=== PATIENT | female | born 1940 | race Caucasian/White ===

== ENCOUNTER 2018-05-24 10:08 | Emergency (ER) | payer MEDICARE ==
[~2018-05-24] VITALS: Ht 157.5 cm; Wt 70.8 kg
[~2018-05-24 10:08] MED LIST: ALLOPURINOL300 MG PO; AMLODIPINE BESYL5 MG PO; ATENOLOL50 MG PO; ATORVASTATIN CA80 MG PO; AZELASTINE137 MCG/0.; CORDARONE200 MG PO; DIFLUCAN200 MG PO; FUROSEMIDE20 MG PO; LOPRESSOR25 MG PO; LOSARTAN POTAS100 MG PO; MINOCIN50 MG PO; OMEPRAZOLE40 MG PO; PEPCID20 MG PO; PROVENTIL HFA6.7 GM INH; TESSALON PERLE100 MG PO; ULTRAM 50MG50 MG PO; VITAMIN D-32000 UNIT PO; XARELTO10 MG PO; ZETIA10 MG PO
--- OUTSIDE RECORDS SUMMARY | 2018-05-24 10:11 | XMS REPORT | Clinical Summary ---
Author Author EVIN [facility] Address Unknown Phone Unavailable Care Team Providers Care Service Desk Director Name Role Phone Sanjeev Up PCP Unavailable Allergies No Known Allergies Medications End Date Status Medication Sig Dispensed Refills Start Date Active ezetimibe (ZETIA) 10 mg Take 10 mg by 0 tablet mouth daily. Active azelastine (ASTELIN) 137 1 spray by 0 mcg nasal spray Nasal route 2 (two) times daily Use in each nostril as directed . Active allopurinol (ZYLOPRIM) Take 300 mg 0 300 MG tablet by mouth daily. Active famotidine (PEPCID) 20 MG Take 20 mg by 0 tablet mouth 2 (two) times daily. Active digoxin (LANOXIN) 0.125 Take 125 mcg 0 MG tablet by mouth daily. Active cholecalciferol, vitamin Take 5,000 0 D3, 5,000 unit Tab Units by mouth daily. Active furosemide (LASIX) 40 MG Take 40 mg by 0 tablet mouth 2 (two) times daily. Active potassium chloride SA Take 20 mEq 0 (K-DUR,KLOR-CON) 20 MEQ by mouth tablet daily. Active metOLazone (ZAROXOLYN) Take 2.5 mg 0 2.5 MG tablet by mouth as needed. Active lenalidomide (REVLIMID) 5 Take by 0 mg capsule mouth. 12/03/2017 atenolol (TENORMIN) 25 MG Take 1 tablet 60 tablet 1 tablet (25 mg total) 7 by mouth daily. 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 -- ECHO 08/201410/10/2014 Hiatal hernia -- large 10/10/2014 Family History Medical History Relation Name Comments Diabetes Brother Hypertension Brother Cancer Father Heart disease Father Hypertension Father Cancer Mother Hypertension Mother Hypertension Sister Relation Name Status Comments Brother Father Mother Sister Social History Date Tobacco Use Types Packs/Day Years Used Never Smoker Smokeless Tobacco: Never Used Alcohol Use Drinks/Week oz/Week Comments No Sex Assigned at Date Recorded Not on file Industry Job Start Date Occupation Not on file Not on file Not on file Travel End Travel History Travel Start No recent travel history available. Last Filed Vital Signs Not on file Plan of Treatment Not on file Results Not on fileafter 05/23/2017 Insurance Payer Benefit Subscriber ID Type Phone Address Plan / Group [facility] ADV Advance Directives For more information, please contact: [facility] [address] [place] [address] Date Inactivated Comments Code Status Date Activated 04/05/2016 4:30 PM Full Code 04/05/2016 5:57 AM This code status was determined by: Patient 02/05/2016 3:44 PM Full Code 02/02/2016 10:05 PM This code status was determined by: Patient 12/22/2014 6:41 PM Full Code 12/16/2014 3:43 AM This code status was determined by: Patient 11/09/2014 4:17 PM Full Code 11/06/2014 1:09 PM This code status was determined by: Patient 10/12/2014 11:43 AM Full Code 10/12/2014 7:55 AM This code status was determined by: Patient
--- OUTSIDE RECORDS SUMMARY | 2018-05-24 10:11 | XMS REPORT | Clinical Summary ---
Author Author [facility] Address Unknown Phone Unavailable Care Team Providers Care Microsoft Bi Consultant Name Role Phone Sanjeev Up MD PCP Allergies No Known Allergies Medications End Date Status Medication Sig Dispensed Refills Start Date Active allopurinol (ZYLOPRIM) 0 300 MG tablet 6 Active atenolol (TENORMIN) 50 MG 0 tablet 6 Active PEPCID 20 mg tablet 0 6 Active furosemide (LASIX) 20 MG 0 tablet 6 Active metolazone (ZAROXOLYN) 5 0 MG tablet 6 Active COUMADIN 5 mg tablet 0 6 Active ZETIA 10 mg tablet 0 6 Active benzonatate (TESSALON) Take 200 mg 0 200 MG capsule by mouth 3 (three) times a day as needed for cough. Active cholecalciferol, vitamin Take by 0 D3, 5,000 unit tablet mouth. Active docusate sodium (COLACE) Take 100 mg 0 100 MG capsule by mouth 2 (two) times a day. Active fexofenadine (TAYLOR) Take 180 mg 0 180 MG tablet by mouth daily. Active amLODIPine (NORVASC) 5 MG Take 5 mg by 0 tablet mouth daily. Active Problems Problem Noted Date Morbid obesity due to excess calories 05/31/2016 Overview: Patient has BMI of 42 Her PH is likely a mix of goup 2 and 3 Recommend continue using CPAP L ast Assessment & Plan: Obesity is unchanged. Discussed the patient's BMI. The BMI is above average; BMI management plan is completed. General weight loss/lifestyle modification strategies discussed (elicit support from others; identify saboteurs; non-food rewards, etc). Informal exercise measures discussed, e.g. taking stairs instead of elevator. Regular aerobic exercise program discussed. Obstructive sleep apnea (adult) (pediatric) 02/14/2016 Overview: 02/04/2016 Unattended sleep study - AHI 7.4 O2 andreia 81%. Prescribed APAP. Current CPAP settings at 12 cm H20 L ast Assessment & Plan: Recommend to continue using CPAP and [place] [facility] [place]monary hypertension 02/14/2016 Overview: Patient now for follow up. Echo February 2016 She has elevated PA pressure to 55-60. RV dilated but no comment on RV function. I reviewed CT images Her PA is dilated. LA appears generous but not significantly dilated. RV appears to be dilated as well. On exam she has loud P2, elevated JVD to 5 cm, Patient had a PFT during the admission and findings are as below: FEV1 1.9 83% FVC1.48 84 %pred TLC 3.48 78% pred DLCo 11.23 56% pred Recently underwent R+LHC Patient was sent to us for evaluation of PH. She recently [place] [facility] [place] 04/05/2016 Cath was indicative of elevated left sided pressures. 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 Does not meet indication to be considered for PAH specific therapy Patient says she feels better since the time of starting CPAP Recommended her to continue the same She needs to lose weight to improve her Left sided pressure Her BMI is 42 Follow up with strip deburrer to lose weight Recommend her to continue following up with Dr Mary SANTANA in six months or PRN CLL (chronic lymphocytic leukemia) 02/14/2016 Overview: Patient just finished her six monthly cycle 4 of chemotherapy Doing well. Following up with Dr Pedrito uriarte Assessment & Plan: Recommend to continue following up with Dr Major Scheduled for surveillance CT chest in June Family History Relation Name Status Comments Father Mother Social History Date Tobacco Use Types Packs/Day Years Used Never Smoker Smokeless Tobacco: Never Used Tobacco Cessation: Counseling Given: No Alcohol Use Drinks/Week oz/Week Comments No Sex Assigned at Date Recorded Not on file Industry Job Start Date Occupation Not on file Not on file Not on file Travel End Travel History Travel Start No recent travel history available. Last Filed Vital Signs Not on file Plan of Treatment Health Maintenance Due Date Last Done Comments SHINGRIX VACCINE (1 of 2) 1988 ZOSTER VACCINE 1998 PNEUMOCOCCAL-13 2003 INFLUENZA VACCINE 01/16/2018 03/05/2013, 02/20/2012 PNEUMOCOCCAL Completed 10/26/2008 POLYSACCHARIDE VACCINE AGE 65 AND OVER Results Not on fileafter 05/23/2017 Insurance Payer Benefit Subscriber ID Type Phone Address Plan / Group [facility] H[facility] ADVANTAGE [facility] Advance Directives Patient has advance care planning documents on file. For more information, amy stroud contact: Gagan Taylor [address] [place] [address]
--- OUTSIDE RECORDS SUMMARY | 2018-05-24 10:12 | XMS REPORT ---
Author Author [facility] Address Unknown Phone Unavailable Care Team Providers [employer] Name Role Phone DEUCE HERNANDEZ Unavailable Unavailable KARLA RICE Unavailable Unavailable LELAND BARKLEY Unavailable Unavailable TONY FERNÁNDEZ Unavailable Unavailable Problems This patient has no known problems. Allergies, Adverse Reactions, Alerts This patient has no known allergies or adverse reactions. Medications This patient has no known medications. Results Test Description Test Time Test Comments Text Results Atomic Results Result Comments TISSUE EXAM 2017-02-28 11:06:00 Surgical Pathology Report Case: [id number] Authorizing Provider: Ignacio Hernandez, Collected: 02/26/2017 1015 MD Ordering Location: [facility] PERIOPERATIVE Received: 02/26/2017 1120 SERVICES Pathologist: Janes Swartz MD Specimen: Gallbladder PART A GALLBLADDER, CHOLECYSTECTOMY:CHRONIC CHOLECYSTITIS.CHOLELITHIASIS. Signing Pathologist Direct Phone Line: [phone] signed by Janes Swartz MD on 02/28/2017 at 11:06 [id number] Gallbladder Received in formalin labeled "gallbladder" is a 7.5 x 4.2 x 3.5 cm, intact, distended gallbladder. The serosal surface is purple-dewitt and exhibits cautery artifact on the hepatic surface. The lumen contains yellow-green to red mucoid bile and multiple irregular, black calculi ranging in size from 0.2 cm to 0.3 cm in greatest dimension. The mucosal surface is yellow-green to red, velvety and glistening. The wall measures up to 0.3 cm in maximum thickness.Section code: A1, parallel cystic duct resection margin; A2, plastic products sales representative sections of gallbladder. DB/ew PROTHROMBIN TIME/INR 2017-02-26 08:11:00 PROTIME (BEAKER) (test tuyh=004) 16.4 seconds 11.7-14.7 INR (BEAKER) (test jbup=649) 1.3 <=5.9 RECOMMENDED COUMADIN/WARFARIN INR THERAPY RANGESSTANDARD DOSE: 2.0 - 3.0 Inclu todd: PROPHYLAXIS for venous thrombosis, systemic embolization; TREATMENT for julienne ous thrombosis and/or pulmonary embolus.HIGH RISK: Target INR is 2.5-3.5 for pat ients with mechanical heart valves.CBC W/PLT COUNT & AUTO [id number] 08:40:00* Test Item Value Reference Range Comments WHITE BLOOD CELL COUNT (BEAKER) (test xzbl=214) 10.7 K/ L 3.5-10.5 RED BLOOD CELL COUNT (BEAKER) (test dhxo=989) 3.37 M/ L 3.93-5.22 HEMOGLOBIN (BEAKER) (test oqzy=097) 11.1 GM/DL 11.2-15.7 HEMATOCRIT (BEAKER) (test eykw=343) 35.0 % 34.1-44.9 MEAN CORPUSCULAR VOLUME (BEAKER) (test hteo=746) 103.9 fL 79.4-94.8 MEAN CORPUSCULAR HEMOGLOBIN (BEAKER) (test blyx=955) 32.9 pg 25.6-32.2 MEAN CORPUSCULAR HEMOGLOBIN CONC (BEAKER) (test rwrh=147) 31.7 GM/DL 32.2-35.5 RED CELL DISTRIBUTION WIDTH (BEAKER) (test juzi=410) 15.9 % 11.7-14.4 PLATELET COUNT (BEAKER) (test gwpv=978) 173 K/CU MM 150-450 MEAN PLATELET VOLUME (BEAKER) (test ecmd=449) 11.4 fL 9.4-12.3 NUCLEATED RED BLOOD CELLS (BEAKER) (test ydpl=080) 0 /100 WBC 0-0 NEUTROPHILS RELATIVE PERCENT (BEAKER) (test dnal=096) 16 % LYMPHOCYTES RELATIVE PERCENT (BEAKER) (test yisj=891) 79 % MONOCYTES RELATIVE PERCENT (BEAKER) (test peuq=309) 2 % EOSINOPHILS RELATIVE PERCENT (BEAKER) (test tpqz=118) 2 % BASOPHILS RELATIVE PERCENT (BEAKER) (test cihg=834) 1 % NEUTROPHILS ABSOLUTE COUNT (BEAKER) (test cqjg=589) 1.72 K/ L 1.56-6.13 LYMPHOCYTES ABSOLUTE COUNT (BEAKER) (test lylt=686) 8.45 K/ L 1.18-3.74 MONOCYTES ABSOLUTE COUNT (BEAKER) (test lxwe=081) 0.17 K/ L 0.24-0.36 EOSINOPHILS ABSOLUTE COUNT (BEAKER) (test xadn=510) 0.22 K/ L 0.04-0.36 BASOPHILS ABSOLUTE COUNT (BEAKER) (test rhax=123) 0.13 K/ L 0.01-0.08 IMMATURE GRANULOCYTES-RELATIVE PERCENT (BEAKER) (test hhbm=3097) 0 % 0-1 (MANUAL DIFFERENTIAL)2017-01-12 08:40:00* Test Item Value Reference Range Comments TOTAL COUNTED (BEAKER) (test avro=1521) [id number] 06:05:00* Test Item Value Reference Range Comments MAGNESIUM (BEAKER) (test vltz=155) 2.0 mg/dL 1.6-2.6 BASIC METABOLIC [id number] 06:05:00* Test Item Value Reference Range Comments SODIUM (BEAKER) (test nrjj=316) 140 meq/L 136-145 POTASSIUM (BEAKER) (test pxlb=720) 3.8 meq/L 3.5-5.1 CHLORIDE (BEAKER) (test mmsq=488) 103 meq/L 98-107 CO2 (BEAKER) (test oumu=650) 29 meq/L 22-29 BLOOD UREA NITROGEN (BEAKER) (test jgyd=540) 8 mg/dL 7-21 CREATININE (BEAKER) (test mnmx=383) 0.85 mg/dL 0.57-1.25 GLUCOSE RANDOM (BEAKER) (test yntm=998) 89 mg/dL 70-105 CALCIUM (BEAKER) (test govt=874) 8.8 mg/dL 8.4-10.2 EGFR (BEAKER) (test jxtj=6396) 65 mL/min/1.73 sq m ESTIMATED GFR IS NOT ACCURATE CREATININE CLEARANCE IN PREDICTING GLOMERULAR FILTRATION RATE. ESTIMATED GFR IS NOT APPLICABLE FOR DIALYSIS PATIENTS. PROTHROMBIN TIME/[id number] 05:59:00* Test Item Value Reference Range Comments PROTIME (BEAKER) (test zmoi=303) 14.7 seconds 11.7-14.7 INR (BEAKER) (test eshq=149) 1.2 <=5.9 RECOMMENDED COUMADIN/WARFARIN INR THERAPY RANGESSTANDARD DOSE: 2.0 - 3.0 Inclu todd: PROPHYLAXIS for venous thrombosis, systemic embolization; TREATMENT for julienne ous thrombosis and/or pulmonary embolus.HIGH RISK: Target INR is 2.5-3.5 for pat ients with mechanical heart valves.While on warfarin.BLOOD [id number] 00:00:00* Test Item Value Reference Range Comments CULTURE (BEAKER) (test hqja=9410) No growth in 5 days BLOOD [id number] 00:00:00* Test Item Value Reference Range Comments CULTURE (BEAKER) (test avah=4361) No growth in 5 days CBC W/PLT COUNT & AUTO [id number] 14:32:00* Test Item Value Reference Range Comments WHITE BLOOD CELL COUNT (BEAKER) (test txpy=810) 9.1 K/ L 3.5-10.5 RED BLOOD CELL COUNT (BEAKER) (test lidr=707) 3.45 M/ L 3.93-5.22 HEMOGLOBIN (BEAKER) (test otqd=989) 11.5 GM/DL 11.2-15.7 HEMATOCRIT (BEAKER) (test xjjt=175) 35.8 % 34.1-44.9 MEAN CORPUSCULAR VOLUME (BEAKER) (test ykdb=095) 103.8 fL 79.4-94.8 MEAN CORPUSCULAR HEMOGLOBIN (BEAKER) (test fzex=602) 33.3 pg 25.6-32.2 MEAN CORPUSCULAR HEMOGLOBIN CONC (BEAKER) (test etkg=812) 32.1 GM/DL 32.2-35.5 RED CELL DISTRIBUTION WIDTH (BEAKER) (test twqj=033) 15.9 % 11.7-14.4 PLATELET COUNT (BEAKER) (test glvw=851) 167 K/CU MM 150-450 MEAN PLATELET VOLUME (BEAKER) (test cndo=932) 11.8 fL 9.4-12.3 NUCLEATED RED BLOOD CELLS (BEAKER) (test eekl=546) 0 /100 WBC 0-0 NEUTROPHILS RELATIVE PERCENT (BEAKER) (test jnzc=272) 17 % LYMPHOCYTES RELATIVE PERCENT (BEAKER) (test mnug=979) 77 % MONOCYTES RELATIVE PERCENT (BEAKER) (test dwgc=129) 2 % EOSINOPHILS RELATIVE PERCENT (BEAKER) (test rayu=320) 2 % BASOPHILS RELATIVE PERCENT (BEAKER) (test rsie=495) 1 % NEUTROPHILS ABSOLUTE COUNT (BEAKER) (test fmao=086) 1.58 K/ L 1.56-6.13 LYMPHOCYTES ABSOLUTE COUNT (BEAKER) (test cnbi=463) 7.04 K/ L 1.18-3.74 MONOCYTES ABSOLUTE COUNT (BEAKER) (test ysvj=304) 0.19 K/ L 0.24-0.36 EOSINOPHILS ABSOLUTE COUNT (BEAKER) (test jnpf=478) 0.17 K/ L 0.04-0.36 BASOPHILS ABSOLUTE COUNT (BEAKER) (test whwm=200) 0.09 K/ L 0.01-0.08 IMMATURE GRANULOCYTES-RELATIVE PERCENT (BEAKER) (test rjgl=9369) 0 % 0-1 (MANUAL DIFFERENTIAL)2017-01-11 14:32:00* Test Item Value Reference Range Comments TOTAL COUNTED (BEAKER) (test phha=3231) PROTHROMBIN [id number] 06:17:00* Test Item Value Reference Range Comments PROTIME (BEAKER) (test vqll=201) 13.9 seconds 11.7-14.7 INR (BEAKER) (test pasw=638) 1.1 <=5.9 RECOMMENDED COUMADIN/WARFARIN INR THERAPY RANGESSTANDARD DOSE: 2.0 - 3.0 Inclu todd: PROPHYLAXIS for venous thrombosis, systemic embolization; TREATMENT for julienne ous thrombosis and/or pulmonary embolus.HIGH RISK: Target INR is 2.5-3.5 for pat ients with mechanical heart valves.While on warfarin.B-TYPE NATRIURETIC FACTOR (BNP)2017-01-11 06:08:00* Test Item Value Reference Range Comments B-TYPE NATRIURETIC PEPTIDE (BEAKER) (test ykgy=351) 319 pg/mL 0-100 [id number] 06:02:00* Test Item Value Reference Range Comments MAGNESIUM (BEAKER) (test qmqj=963) 2.1 mg/dL 1.6-2.6 BASIC METABOLIC [id number] 06:02:00* Test Item Value Reference Range Comments SODIUM (BEAKER) (test hhim=980) 139 meq/L 136-145 POTASSIUM (BEAKER) (test deup=637) 3.8 meq/L 3.5-5.1 CHLORIDE (BEAKER) (test kpqw=361) 102 meq/L 98-107 CO2 (BEAKER) (test cgnv=515) 29 meq/L 22-29 BLOOD UREA NITROGEN (BEAKER) (test gcwm=288) 9 mg/dL 7-21 CREATININE (BEAKER) (test pfhr=099) 0.87 mg/dL 0.57-1.25 GLUCOSE RANDOM (BEAKER) (test hacj=029) 86 mg/dL 70-105 CALCIUM (BEAKER) (test qsdb=089) 8.6 mg/dL 8.4-10.2 EGFR (BEAKER) (test jbrh=9672) 63 mL/min/1.73 sq m ESTIMATED GFR IS NOT ACCURATE CREATININE CLEARANCE IN PREDICTING GLOMERULAR FILTRATION RATE. ESTIMATED GFR IS NOT APPLICABLE FOR DIALYSIS PATIENTS. CBC W/PLT COUNT & AUTO [id number] 07:26:00* Test Item Value Reference Range Comments WHITE BLOOD CELL COUNT (BEAKER) (test onrs=796) 8.4 K/ L 3.5-10.5 RED BLOOD CELL COUNT (BEAKER) (test xiif=609) 3.30 M/ L 3.93-5.22 HEMOGLOBIN (BEAKER) (test bhxd=773) 11.0 GM/DL 11.2-15.7 HEMATOCRIT (BEAKER) (test qjlu=603) 34.9 % 34.1-44.9 MEAN CORPUSCULAR VOLUME (BEAKER) (test xhsw=770) 105.8 fL 79.4-94.8 MEAN CORPUSCULAR HEMOGLOBIN (BEAKER) (test jmoc=104) 33.3 pg 25.6-32.2 MEAN CORPUSCULAR HEMOGLOBIN CONC (BEAKER) (test kinr=128) 31.5 GM/DL 32.2-35.5 RED CELL DISTRIBUTION WIDTH (BEAKER) (test djeu=690) 15.9 % 11.7-14.4 PLATELET COUNT (BEAKER) (test znrs=737) 150 K/CU MM 150-450 MEAN PLATELET VOLUME (BEAKER) (test fahq=891) 12.2 fL 9.4-12.3 NUCLEATED RED BLOOD CELLS (BEAKER) (test flpv=317) 0 /100 WBC 0-0 NEUTROPHILS RELATIVE PERCENT (BEAKER) (test eird=368) 15 % LYMPHOCYTES RELATIVE PERCENT (BEAKER) (test gwfx=555) 80 % MONOCYTES RELATIVE PERCENT (BEAKER) (test ncck=870) 3 % EOSINOPHILS RELATIVE PERCENT (BEAKER) (test fcol=407) 3 % BASOPHILS RELATIVE PERCENT (BEAKER) (test gviu=726) 1 % NEUTROPHILS ABSOLUTE COUNT (BEAKER) (test jdmg=217) 1.21 K/ L 1.56-6.13 LYMPHOCYTES ABSOLUTE COUNT (BEAKER) (test vwdu=649) 6.66 K/ L 1.18-3.74 MONOCYTES ABSOLUTE COUNT (BEAKER) (test euhk=828) 0.21 K/ L 0.24-0.36 EOSINOPHILS ABSOLUTE COUNT (BEAKER) (test wcxu=139) 0.23 K/ L 0.04-0.36 BASOPHILS ABSOLUTE COUNT (BEAKER) (test sdcd=766) 0.06 K/ L 0.01-0.08 IMMATURE GRANULOCYTES-RELATIVE PERCENT (BEAKER) (test yynv=0922) 0 % 0-1 (MANUAL DIFFERENTIAL)2017-01-10 07:26:00* Test Item Value Reference Range Comments TOTAL COUNTED (BEAKER) (test csag=1893) PLT MORPHOLOGY (BEAKER) (test vawi=931) Normal RBC MORPHOLOGY (BEAKER) (test niuv=048) Normal ATYPICAL LYMPHS(BEAKER) (test hnkq=0328) Present [id number] 05:20:00* Test Item Value Reference Range Comments MAGNESIUM (BEAKER) (test hzrn=523) 2.4 mg/dL 1.6-2.6 BASIC METABOLIC [id number] 05:20:00* Test Item Value Reference Range Comments SODIUM (BEAKER) (test ycwe=110) 138 meq/L 136-145 POTASSIUM (BEAKER) (test bfak=143) 4.4 meq/L 3.5-5.1 CHLORIDE (BEAKER) (test mryp=318) 102 meq/L 98-107 CO2 (BEAKER) (test fgke=733) 27 meq/L 22-29 BLOOD UREA NITROGEN (BEAKER) (test phqd=849) 12 mg/dL 7-21 CREATININE (BEAKER) (test ywaw=995) 0.93 mg/dL 0.57-1.25 GLUCOSE RANDOM (BEAKER) (test sxwf=369) 78 mg/dL 70-105 CALCIUM (BEAKER) (test wqrs=880) 8.5 mg/dL 8.4-10.2 EGFR (BEAKER) (test dqyu=9015) 58 mL/min/1.73 sq m ESTIMATED GFR IS NOT ACCURATE CREATININE CLEARANCE IN PREDICTING GLOMERULAR FILTRATION RATE. ESTIMATED GFR IS NOT APPLICABLE FOR DIALYSIS PATIENTS. HEPATIC FUNCTION [id number] 05:20:00* Test Item Value Reference Range Comments TOTAL PROTEIN (BEAKER) (test vzys=967) 5.5 gm/dL 6.0-8.3 ALBUMIN (BEAKER) (test mgwi=3602) 3.1 g/dL 3.5-5.0 BILIRUBIN TOTAL (BEAKER) (test klxp=476) 1.3 mg/dL 0.2-1.2 BILIRUBIN DIRECT (BEAKER) (test dagw=534) 0.7 mg/dL 0.1-0.5 ALKALINE PHOSPHATASE (BEAKER) (test uufa=256) 114 U/L 40-150 AST (SGOT) (BEAKER) (test qxun=012) 20 U/L 5-34 ALT (SGPT) (BEAKER) (test ikid=561) 23 U/L 6-55 CBC W/PLT COUNT & AUTO [id number] 06:29:00* Test Item Value Reference Range Comments WHITE BLOOD CELL COUNT (BEAKER) (test dihk=159) 8.0 K/ L 3.5-10.5 RED BLOOD CELL COUNT (BEAKER) (test pmon=095) 3.15 M/ L 3.93-5.22 HEMOGLOBIN (BEAKER) (test djzh=389) 10.5 GM/DL 11.2-15.7 HEMATOCRIT (BEAKER) (test gpib=124) 33.1 % 34.1-44.9 MEAN CORPUSCULAR VOLUME (BEAKER) (test mtqe=809) 105.1 fL 79.4-94.8 MEAN CORPUSCULAR HEMOGLOBIN (BEAKER) (test cbuh=645) 33.3 pg 25.6-32.2 MEAN CORPUSCULAR HEMOGLOBIN CONC (BEAKER) (test fcmu=318) 31.7 GM/DL 32.2-35.5 RED CELL DISTRIBUTION WIDTH (BEAKER) (test xdzb=317) 16.2 % 11.7-14.4 PLATELET COUNT (BEAKER) (test rsvb=255) 152 K/CU MM 150-450 MEAN PLATELET VOLUME (BEAKER) (test rkfc=869) 12.5 fL 9.4-12.3 NUCLEATED RED BLOOD CELLS (BEAKER) (test zbce=940) 0 /100 WBC 0-0 NEUTROPHILS RELATIVE PERCENT (BEAKER) (test hhvj=607) 19 % LYMPHOCYTES RELATIVE PERCENT (BEAKER) (test iclw=333) 74 % MONOCYTES RELATIVE PERCENT (BEAKER) (test ckfm=734) 3 % EOSINOPHILS RELATIVE PERCENT (BEAKER) (test qfkn=612) 3 % BASOPHILS RELATIVE PERCENT (BEAKER) (test tgts=954) 1 % NEUTROPHILS ABSOLUTE COUNT (BEAKER) (test akrv=152) 1.54 K/ L 1.56-6.13 LYMPHOCYTES ABSOLUTE COUNT (BEAKER) (test hkxu=583) 5.89 K/ L 1.18-3.74 MONOCYTES ABSOLUTE COUNT (BEAKER) (test mzlr=737) 0.27 K/ L 0.24-0.36 EOSINOPHILS ABSOLUTE COUNT (BEAKER) (test qnkp=744) 0.23 K/ L 0.04-0.36 BASOPHILS ABSOLUTE COUNT (BEAKER) (test hvao=235) 0.06 K/ L 0.01-0.08 IMMATURE GRANULOCYTES-RELATIVE PERCENT (BEAKER) (test fyea=6386) 0 % 0-1 DIGOXIN [id number] 06:10:00* Test Item Value Reference Range Comments DIGOXIN LEVEL (BEAKER) (test dhvb=079) 1.1 ng/mL 0.8-2.0 [id number] 06:04:00* Test Item Value Reference Range Comments PHOSPHORUS (BEAKER) (test ktyl=448) 2.8 mg/dL 2.3-4.7 [id number] 06:04:00* Test Item Value Reference Range Comments MAGNESIUM (BEAKER) (test wwfn=157) 2.3 mg/dL 1.6-2.6 BASIC METABOLIC [id number] 06:04:00* Test Item Value Reference Range Comments SODIUM (BEAKER) (test zstv=137) 137 meq/L 136-145 POTASSIUM (BEAKER) (test gpca=078) 3.7 meq/L 3.5-5.1 CHLORIDE (BEAKER) (test onjw=746) 99 meq/L 98-107 CO2 (BEAKER) (test nrta=758) 29 meq/L 22-29 BLOOD UREA NITROGEN (BEAKER) (test yztp=696) 15 mg/dL 7-21 CREATININE (BEAKER) (test ikqo=484) 1.18 mg/dL 0.57-1.25 GLUCOSE RANDOM (BEAKER) (test iuln=598) 79 mg/dL 70-105 CALCIUM (BEAKER) (test zdxi=100) 8.4 mg/dL 8.4-10.2 EGFR (BEAKER) (test cmyq=3227) 44 mL/min/1.73 sq m ESTIMATED GFR IS NOT ACCURATE CREATININE CLEARANCE IN PREDICTING GLOMERULAR FILTRATION RATE. ESTIMATED GFR IS NOT APPLICABLE FOR DIALYSIS PATIENTS. HEPATIC FUNCTION [id number] 06:04:00* Test Item Value Reference Range Comments TOTAL PROTEIN (BEAKER) (test koey=004) 5.7 gm/dL 6.0-8.3 ALBUMIN (BEAKER) (test yite=6271) 3.3 g/dL 3.5-5.0 BILIRUBIN TOTAL (BEAKER) (test dpeb=872) 1.7 mg/dL 0.2-1.2 BILIRUBIN DIRECT (BEAKER) (test uouz=476) 0.9 mg/dL 0.1-0.5 ALKALINE PHOSPHATASE (BEAKER) (test nvtv=821) 110 U/L 40-150 AST (SGOT) (BEAKER) (test qoha=947) 25 U/L 5-34 ALT (SGPT) (BEAKER) (test dcdq=673) 27 U/L 6-55 [id number] 05:52:00* Test Item Value Reference Range Comments PROTIME (BEAKER) (test btwz=789) 15.9 seconds 11.7-14.7 INR (BEAKER) (test jgog=975) 1.3 <=5.9 PARTIAL THROMBOPLASTIN TIME (BEAKER) (test axnl=425) 33.8 seconds 22.5-36.0 RECOMMENDED COUMADIN/WARFARIN INR THERAPY RANGESSTANDARD DOSE: 2.0 - 3.0 Inclu todd: PROPHYLAXIS for venous thrombosis, systemic embolization; TREATMENT for julienne ous thrombosis and/or pulmonary embolus.HIGH RISK: Target INR is 2.5-3.5 for pat ients with mechanical heart valves.PROTHROMBIN TIME/[id number] 15:26:00* Test Item Value Reference Range Comments PROTIME (BEAKER) (test drkj=614) 18.8 seconds 11.7-14.7 INR (BEAKER) (test bzgh=733) 1.6 <=5.9 RECOMMENDED COUMADIN/WARFARIN INR THERAPY RANGESSTANDARD DOSE: 2.0 - 3.0 Inclu todd: PROPHYLAXIS for venous thrombosis, systemic embolization; TREATMENT for julienne ous thrombosis and/or pulmonary embolus.HIGH RISK: Target INR is 2.5-3.5 for pat ients with mechanical heart valves.After 2 FFP givenCBC W/PLT COUNT & AUTO [id number] 13:42:00* Test Item Value Reference Range Comments WHITE BLOOD CELL COUNT (BEAKER) (test opgd=012) 9.0 K/ L 4.0-10.0 RED BLOOD CELL COUNT (BEAKER) (test cqqq=419) 3.18 M/ L 4.00-5.00 HEMOGLOBIN (BEAKER) (test lsjq=675) 11.3 GM/DL 12.0-15.0 HEMATOCRIT (BEAKER) (test xdyb=016) 33.8 % 36.0-45.0 MEAN CORPUSCULAR VOLUME (BEAKER) (test oxur=456) 106.0 fL 82.0-99.0 MEAN CORPUSCULAR HEMOGLOBIN (BEAKER) (test enlq=246) 35.6 pg 27.0-33.0 MEAN CORPUSCULAR HEMOGLOBIN CONC (BEAKER) (test dzwh=458) 33.5 GM/DL 32.0-36.0 RED CELL DISTRIBUTION WIDTH (BEAKER) (test jfrf=697) 14.8 % 10.3-14.2 PLATELET COUNT (BEAKER) (test qzev=324) 130 K/CU MM 150-430 MEAN PLATELET VOLUME (BEAKER) (test jcdd=747) 9.9 fL 6.5-10.5 NUCLEATED RED BLOOD CELLS (BEAKER) (test rsrb=606) 0 /100 WBC 0-0 NEUTROPHILS RELATIVE PERCENT (BEAKER) (test vydj=383) 27 % LYMPHOCYTES RELATIVE PERCENT (BEAKER) (test serc=076) 68 % MONOCYTES RELATIVE PERCENT (BEAKER) (test httk=060) 3 % EOSINOPHILS RELATIVE PERCENT (BEAKER) (test fwep=373) 2 % BASOPHILS RELATIVE PERCENT (BEAKER) (test xcsd=187) 0 % NEUTROPHILS ABSOLUTE COUNT (BEAKER) (test zfgo=428) 2.42 K/ L 1.80-8.00 LYMPHOCYTES ABSOLUTE COUNT (BEAKER) (test kxtp=275) 6.09 K/ L 1.48-4.50 MONOCYTES ABSOLUTE COUNT (BEAKER) (test hghs=047) 0.26 K/ L 0.00-1.30 EOSINOPHILS ABSOLUTE COUNT (BEAKER) (test svkh=124) 0.20 K/ L 0.00-0.50 BASOPHILS ABSOLUTE COUNT (BEAKER) (test infz=656) 0.03 K/ L 0.00-0.20 0.000.710.600.000.000.000.000.00(MANUAL DIFFERENTIAL)2017-01-08 13:42:00* Test Item Value Reference Range Comments TOTAL COUNTED (BEAKER) (test uiku=2485) PLT MORPHOLOGY (BEAKER) (test nzlo=168) Normal RBC MORPHOLOGY (BEAKER) (test xduh=977) Normal ATYPICAL LYMPHS(BEAKER) (test huei=7499) Present [id number] 06:33:00* Test Item Value Reference Range Comments PHOSPHORUS (BEAKER) (test gmyh=541) 3.5 mg/dL 2.3-4.7 [id number] 06:33:00* Test Item Value Reference Range Comments MAGNESIUM (BEAKER) (test wfbx=964) 1.7 mg/dL 1.6-2.6 BASIC METABOLIC [id number] 06:33:00* Test Item Value Reference Range Comments SODIUM (BEAKER) (test wucu=359) 132 meq/L 136-145 POTASSIUM (BEAKER) (test pevj=864) 3.4 meq/L 3.5-5.1 CHLORIDE (BEAKER) (test wipr=939) 97 meq/L 98-107 CO2 (BEAKER) (test mxae=166) 24 meq/L 22-29 BLOOD UREA NITROGEN (BEAKER) (test ltrn=800) 19 mg/dL 7-21 CREATININE (BEAKER) (test mitj=448) 1.20 mg/dL 0.57-1.25 GLUCOSE RANDOM (BEAKER) (test hrcf=690) 111 mg/dL 70-105 CALCIUM (BEAKER) (test ramx=435) 8.0 mg/dL 8.4-10.2 EGFR (BEAKER) (test smhq=8874) 43 mL/min/1.73 sq m ESTIMATED GFR IS NOT ACCURATE CREATININE CLEARANCE IN PREDICTING GLOMERULAR FILTRATION RATE. ESTIMATED GFR IS NOT APPLICABLE FOR DIALYSIS PATIENTS. Specimen slightly ictericPT/[id number] 05:43:00* Test Item Value Reference Range Comments PROTIME (BEAKER) (test tdah=967) 19.5 seconds 11.7-14.7 INR (BEAKER) (test xtrx=990) 1.7 <=5.9 PARTIAL THROMBOPLASTIN TIME (BEAKER) (test xybl=811) 35.3 seconds 22.5-36.0 RECOMMENDED COUMADIN/WARFARIN INR THERAPY RANGESSTANDARD DOSE: 2.0 - 3.0 Inclu todd: PROPHYLAXIS for venous thrombosis, systemic embolization; TREATMENT for julienne ous thrombosis and/or pulmonary embolus.HIGH RISK: Target INR is 2.5-3.5 for pat ients with mechanical heart valves.PT/[id number] 14:55:00* Test Item Value Reference Range Comments PROTIME (BEAKER) (test amvf=138) 18.8 seconds 11.7-14.7 INR (BEAKER) (test aojl=771) 1.6 <=5.9 PARTIAL THROMBOPLASTIN TIME (BEAKER) (test hmqe=899) 33.3 seconds 22.5-36.0 RECOMMENDED COUMADIN/WARFARIN INR THERAPY RANGESSTANDARD DOSE: 2.0 - 3.0 Inclu todd: PROPHYLAXIS for venous thrombosis, systemic embolization; TREATMENT for julienne ous thrombosis and/or pulmonary embolus.HIGH RISK: Target INR is 2.5-3.5 for pat ients with mechanical heart valves.CBC W/PLT COUNT & AUTO [id number] 13:33:00* Test Item Value Reference Range Comments WHITE BLOOD CELL COUNT (BEAKER) (test rdzm=214) 9.6 K/ L 4.0-10.0 RED BLOOD CELL COUNT (BEAKER) (test usph=237) 3.63 M/ L 4.00-5.00 HEMOGLOBIN (BEAKER) (test qirf=525) 12.5 GM/DL 12.0-15.0 HEMATOCRIT (BEAKER) (test fhvr=461) 38.0 % 36.0-45.0 MEAN CORPUSCULAR VOLUME (BEAKER) (test udmj=912) 105.0 fL 82.0-99.0 MEAN CORPUSCULAR HEMOGLOBIN (BEAKER) (test jnkn=667) 34.6 pg 27.0-33.0 MEAN CORPUSCULAR HEMOGLOBIN CONC (BEAKER) (test yqvr=545) 33.0 GM/DL 32.0-36.0 RED CELL DISTRIBUTION WIDTH (BEAKER) (test ymyt=608) 16.5 % 10.3-14.2 PLATELET COUNT (BEAKER) (test jast=282) 150 K/CU MM 150-430 MEAN PLATELET VOLUME (BEAKER) (test twfr=136) 9.8 fL 6.5-10.5 NUCLEATED RED BLOOD CELLS (BEAKER) (test psky=779) 0 /100 WBC 0-0 NEUTROPHILS RELATIVE PERCENT (BEAKER) (test uwwc=310) 31 % LYMPHOCYTES RELATIVE PERCENT (BEAKER) (test kurm=082) 64 % MONOCYTES RELATIVE PERCENT (BEAKER) (test lyzs=024) 2 % EOSINOPHILS RELATIVE PERCENT (BEAKER) (test zirv=851) 3 % BASOPHILS RELATIVE PERCENT (BEAKER) (test auge=407) 1 % NEUTROPHILS ABSOLUTE COUNT (BEAKER) (test iagv=229) 2.95 K/ L 1.80-8.00 LYMPHOCYTES ABSOLUTE COUNT (BEAKER) (test gqxb=966) 6.10 K/ L 1.48-4.50 MONOCYTES ABSOLUTE COUNT (BEAKER) (test xbme=935) 0.22 K/ L 0.00-1.30 EOSINOPHILS ABSOLUTE COUNT (BEAKER) (test gzkn=216) 0.24 K/ L 0.00-0.50 BASOPHILS ABSOLUTE COUNT (BEAKER) (test jytt=718) 0.06 K/ L 0.00-0.20 0.000.500.000.000.000.000.00(MANUAL DIFFERENTIAL)2017-01-07 13:33:00* Test Item Value Reference Range Comments TOTAL COUNTED (BEAKER) (test rpot=9378) PLT MORPHOLOGY (BEAKER) (test mkpo=876) Normal RBC MORPHOLOGY (BEAKER) (test wnxn=816) Normal ATYPICAL LYMPHS(BEAKER) (test gsqx=4386) Present [id number] 07:41:00* Test Item Value Reference Range Comments PHOSPHORUS (BEAKER) (test rldi=079) 4.0 mg/dL 2.3-4.7 [id number] 07:41:00* Test Item Value Reference Range Comments MAGNESIUM (BEAKER) (test zvfs=930) 1.6 mg/dL 1.6-2.6 BASIC METABOLIC [id number] 07:41:00* Test Item Value Reference Range Comments SODIUM (BEAKER) (test gjbf=118) 133 meq/L 136-145 POTASSIUM (BEAKER) (test lyfm=038) 3.6 meq/L 3.5-5.1 CHLORIDE (BEAKER) (test hkbw=077) 97 meq/L 98-107 CO2 (BEAKER) (test ppwf=421) 25 meq/L 22-29 BLOOD UREA NITROGEN (BEAKER) (test vode=381) 16 mg/dL 7-21 CREATININE (BEAKER) (test cmxq=797) 0.99 mg/dL 0.57-1.25 GLUCOSE RANDOM (BEAKER) (test dugv=098) 129 mg/dL 70-105 CALCIUM (BEAKER) (test hnnw=125) 8.4 mg/dL 8.4-10.2 EGFR (BEAKER) (test vpey=7837) 54 mL/min/1.73 sq m ESTIMATED GFR IS NOT ACCURATE CREATININE CLEARANCE IN PREDICTING GLOMERULAR FILTRATION RATE. ESTIMATED GFR IS NOT APPLICABLE FOR DIALYSIS PATIENTS. Specimen moderately ictericPT/[id number] 06:27:00* Test Item Value Reference Range Comments PROTIME (BEAKER) (test owcx=886) 22.4 seconds 11.7-14.7 INR (BEAKER) (test fksy=299) 2.0 <=5.9 PARTIAL THROMBOPLASTIN TIME (BEAKER) (test yiyq=677) 34.3 seconds 22.5-36.0 RECOMMENDED COUMADIN/WARFARIN INR THERAPY RANGESSTANDARD DOSE: 2.0 - 3.0 Inclu todd: PROPHYLAXIS for venous thrombosis, systemic embolization; TREATMENT for julienne ous thrombosis and/or pulmonary embolus.HIGH RISK: Target INR is 2.5-3.5 for pat ients with mechanical heart valves.TROPONIN [id number] 19:21:00* Test Item Value Reference Range Comments TROPONIN I (BEAKER) (test kkci=418) 0.04 ng/mL 0.00-0.03 Effective 05/05/2014: Reference Range ChangeNew: 0.00-0.03 Previous 0.00-0.15T roponin I (TnI) levels must be interpreted in the context of the presenting symp toms and the clinical findings. Elevated TnI levels indicate myocardial damage, but are not specific for ischemic heart disease. Elevated TnI levels are seen in patients with other cardiac conditions (including myocarditis and congestive he art failure), and slight TnI elevations occur in patients with other conditions, including sepsis, renal failure, acidosis, acute neurological disease, and pers istent tachyarrhythmia.[id number] 16:56:00* Test Item Value Reference Range Comments THYROID STIMULATING HORMONE (BEAKER) (test rpuj=500) 3.14 uIU/mL 0.35-4.94 CREATINE KINASE (CK), TOTAL AND [id number] 15:01:00* Test Item Value Reference Range Comments CREATINE KINASE TOTAL (BEAKER) (test xfna=478) 18 U/L 29-200 CREATINE KINASE-MB (BEAKER) (test ojlj=461) 0.8 ng/mL 0.0-6.6 CREATINE KINASE-MB INDEX (BEAKER) (test xpmc=423) 4.4 % Effective 05/05/2014: CK-MB Reference Range ChangeNew: 0.0-6.6 Previous: 0.0- 4.9CK-MB Reference Range:<6.7 Normal6.7-10.0 Borderline>10.0 Abnormal TROPONIN [id number] 14:54:00* Test Item Value Reference Range Comments TROPONIN I (BEAKER) (test twlc=077) 0.03 ng/mL 0.00-0.03 Effective 05/05/2014: Reference Range ChangeNew: 0.00-0.03 Previous 0.00-0.15T roponin I (TnI) levels must be interpreted in the context of the presenting symp toms and the clinical findings. Elevated TnI levels indicate myocardial damage, but are not specific for ischemic heart disease. Elevated TnI levels are seen in patients with other cardiac conditions (including myocarditis and congestive he art failure), and slight TnI elevations occur in patients with other conditions, including sepsis, renal failure, acidosis, acute neurological disease, and pers istent tachyarrhythmia.B-TYPE NATRIURETIC FACTOR (BNP)2017-01-06 14:49:00* Test Item Value Reference Range Comments B-TYPE NATRIURETIC PEPTIDE (BEAKER) (test xuca=475) 495 pg/mL 0-100 [id number] 14:45:00* Test Item Value Reference Range Comments MAGNESIUM (BEAKER) (test tjrh=985) 1.6 mg/dL 1.6-2.6 COMPREHENSIVE METABOLIC [id number] 14:45:00* Test Item Value Reference Range Comments TOTAL PROTEIN (BEAKER) (test asep=741) 5.9 gm/dL 6.0-8.3 ALBUMIN (BEAKER) (test rwtm=9677) 3.5 g/dL 3.5-5.0 ALKALINE PHOSPHATASE (BEAKER) (test sdbv=722) 71 U/L 40-150 BILIRUBIN TOTAL (BEAKER) (test psms=653) 2.8 mg/dL 0.2-1.2 SODIUM (BEAKER) (test dmqi=359) 133 meq/L 136-145 POTASSIUM (BEAKER) (test usga=467) 3.5 meq/L 3.5-5.1 CHLORIDE (BEAKER) (test bchk=838) 95 meq/L 98-107 CO2 (BEAKER) (test dtlv=883) 27 meq/L 22-29 BLOOD UREA NITROGEN (BEAKER) (test egmq=455) 14 mg/dL 7-21 CREATININE (BEAKER) (test toje=460) 0.95 mg/dL 0.57-1.25 GLUCOSE RANDOM (BEAKER) (test ooyc=776) 113 mg/dL 70-105 CALCIUM (BEAKER) (test bqgp=331) 9.0 mg/dL 8.4-10.2 AST (SGOT) (BEAKER) (test cikz=031) 16 U/L 5-34 ALT (SGPT) (BEAKER) (test rixt=659) 17 U/L 6-55 EGFR (BEAKER) (test ajil=7285) 57 mL/min/1.73 sq m ESTIMATED GFR IS NOT ACCURATE CREATININE CLEARANCE IN PREDICTING GLOMERULAR FILTRATION RATE. ESTIMATED GFR IS NOT APPLICABLE FOR DIALYSIS PATIENTS. Specimen slightly ictericPT/[id number] 14:43:00* Test Item Value Reference Range Comments PROTIME (BEAKER) (test zztd=970) 21.8 seconds 11.7-14.7 INR (BEAKER) (test tgsb=366) 1.9 <=5.9 PARTIAL THROMBOPLASTIN TIME (BEAKER) (test znqk=703) 32.2 seconds 22.5-36.0 RECOMMENDED COUMADIN/WARFARIN INR THERAPY RANGESSTANDARD DOSE: 2.0 - 3.0 Inclu todd: PROPHYLAXIS for venous thrombosis, systemic embolization; TREATMENT for julienne ous thrombosis and/or pulmonary embolus.HIGH RISK: Target INR is 2.5-3.5 for pat ients with mechanical heart valves.CBC W/PLT COUNT & AUTO [id number] 14:14:00* Test Item Value Reference Range Comments WHITE BLOOD CELL COUNT (BEAKER) (test zcvu=685) 11.0 K/ L 4.0-10.0 RED BLOOD CELL COUNT (BEAKER) (test bcnu=601) 3.97 M/ L 4.00-5.00 HEMOGLOBIN (BEAKER) (test thma=858) 13.4 GM/DL 12.0-15.0 HEMATOCRIT (BEAKER) (test ccon=807) 42.5 % 36.0-45.0 MEAN CORPUSCULAR VOLUME (BEAKER) (test pmcc=437) 107.0 fL 82.0-99.0 MEAN CORPUSCULAR HEMOGLOBIN (BEAKER) (test hxlx=220) 33.6 pg 27.0-33.0 MEAN CORPUSCULAR HEMOGLOBIN CONC (BEAKER) (test xnij=438) 31.4 GM/DL 32.0-36.0 RED CELL DISTRIBUTION WIDTH (BEAKER) (test lkve=284) 16.4 % 10.3-14.2 PLATELET COUNT (BEAKER) (test cced=681) 152 K/CU MM 150-430 MEAN PLATELET VOLUME (BEAKER) (test pkxl=061) 9.3 fL 6.5-10.5 NUCLEATED RED BLOOD CELLS (BEAKER) (test erpk=916) 0 /100 WBC 0-0 NEUTROPHILS RELATIVE PERCENT (BEAKER) (test xfku=643) 27 % LYMPHOCYTES RELATIVE PERCENT (BEAKER) (test djpw=536) 67 % MONOCYTES RELATIVE PERCENT (BEAKER) (test yqmb=703) 2 % EOSINOPHILS RELATIVE PERCENT (BEAKER) (test zukk=877) 2 % BASOPHILS RELATIVE PERCENT (BEAKER) (test luec=975) 2 % NEUTROPHILS ABSOLUTE COUNT (BEAKER) (test envk=724) 2.98 K/ L 1.80-8.00 LYMPHOCYTES ABSOLUTE COUNT (BEAKER) (test dgpb=333) 7.34 K/ L 1.48-4.50 MONOCYTES ABSOLUTE COUNT (BEAKER) (test rell=198) 0.26 K/ L 0.00-1.30 EOSINOPHILS ABSOLUTE COUNT (BEAKER) (test qlyt=861) 0.16 K/ L 0.00-0.50 BASOPHILS ABSOLUTE COUNT (BEAKER) (test sxmd=365) 0.21 K/ L 0.00-0.20 0.000.590.700.000.000.000.000.00(MANUAL DIFFERENTIAL)2017-01-06 14:14:00* Test Item Value Reference Range Comments TOTAL COUNTED (BEAKER) (test ewqw=1211) PLT MORPHOLOGY (BEAKER) (test qlge=355) Normal RBC MORPHOLOGY (BEAKER) (test ukqh=252) Normal ATYPICAL LYMPHS(BEAKER) (test glev=1008) Present CREATINE KINASE (CK), TOTAL AND [id number] 13:20:00* Test Item Value Reference Range Comments CREATINE KINASE TOTAL (BEAKER) (test mmey=807) 25 U/L 29-200 CREATINE KINASE-MB (BEAKER) (test patd=950) 0.9 ng/mL 0.0-6.6 CREATINE KINASE-MB INDEX (BEAKER) (test tdzo=752) 3.6 % Effective 05/05/2014: CK-MB Reference Range ChangeNew: 0.0-6.6 Previous: 0.0- 4.9CK-MB Reference Range:<6.7 Normal6.7-10.0 Borderline>10.0 Abnormal TROPONIN [id number] 13:20:00* Test Item Value Reference Range Comments TROPONIN I (BEAKER) (test bohy=988) 0.02 ng/mL 0.00-0.03 Effective 05/05/2014: Reference Range ChangeNew: 0.00-0.03 Previous 0.00-0.15T roponin I (TnI) levels must be interpreted in the context of the presenting symp toms and the clinical findings. Elevated TnI levels indicate myocardial damage, but are not specific for ischemic heart disease. Elevated TnI levels are seen in patients with other cardiac conditions (including myocarditis and congestive he art failure), and slight TnI elevations occur in patients with other conditions, including sepsis, renal failure, acidosis, acute neurological disease, and pers istent tachyarrhythmia.BLOOD [id number] 11:00:00* Test Item Value Reference Range Comments CULTURE (BEAKER) (test voqb=7803) No growth in 5 days BLOOD [id number] 11:00:00* Test Item Value Reference Range Comments CULTURE (BEAKER) (test krgc=3612) No growth in 5 days URINE [id number] 12:07:00* Test Item Value Reference Range Comments CULTURE (BEAKER) (test bfjb=3421) KLEBSIELLA PNEUMONIAE 10-19,000 col/mL Klebsiella pneumoniae Amikacin (test code=1) Ampicillin + Sulbactam (test code=6) Aztreonam (test code=32) Cefazolin (test code=9) Cefepime (test code=51) Cefoxitin (test code=68) Ceftazidime (test code=27) Ceftriaxone (test code=52) Ertapenem (test code=38) Gentamicin (test code=18) Levofloxacin (test code=22) Meropenem (test code=34) Nitrofurantoin (test code=23) Piperacillin + Tazobactam (test code=29) Tetracycline (test code=2) Tigecycline (test whjh=567) Tobramycin (test code=25) Trimethoprim + Sulfamethoxazole (test code=47) CULTURE (BEAKER) (test nksx=3375) ESCHERICHIA COLI 10-19,000 col/mL Escherichia coli Amikacin (test code=1) Ampicillin + Sulbactam (test code=6) Aztreonam (test code=32) Cefazolin (test code=92) Cefepime (test code=51) Cefoxitin (test code=68) Ceftazidime (test code=27) Ceftriaxone (test code=52) Ertapenem (test code=38) Gentamicin (test code=18) Levofloxacin (test code=22) Meropenem (test code=34) Nitrofurantoin (test code=23) Piperacillin + Tazobactam (test code=29) Tetracycline (test code=2) Tigecycline (test occn=3003) Tobramycin (test code=25) Trimethoprim + Sulfamethoxazole (test code=47) CBC W/PLT COUNT & AUTO [id number] 08:07:00* Test Item Value Reference Range Comments WHITE BLOOD CELL COUNT (BEAKER) (test gvcy=796) 10.3 K/ L 4.0-10.0 RED BLOOD CELL COUNT (BEAKER) (test rrie=173) 3.81 M/ L 4.00-5.00 HEMOGLOBIN (BEAKER) (test ltjv=424) 12.3 GM/DL 12.0-15.0 HEMATOCRIT (BEAKER) (test zjvh=202) 39.9 % 36.0-45.0 MEAN CORPUSCULAR VOLUME (BEAKER) (test scnl=748) 105.0 fL 82.0-99.0 MEAN CORPUSCULAR HEMOGLOBIN (BEAKER) (test jptm=917) 32.3 pg 27.0-33.0 MEAN CORPUSCULAR HEMOGLOBIN CONC (BEAKER) (test jcie=140) 30.9 GM/DL 32.0-36.0 RED CELL DISTRIBUTION WIDTH (BEAKER) (test kqbp=511) 17.5 % 10.3-14.2 PLATELET COUNT (BEAKER) (test xjtk=756) 35 K/CU MM 150-430 MEAN PLATELET VOLUME (BEAKER) (test pjpr=101) 12.7 fL 6.5-10.5 NUCLEATED RED BLOOD CELLS (BEAKER) (test ejnp=735) 0 /100 WBC 0-0 NEUTROPHILS RELATIVE PERCENT (BEAKER) (test bcmo=243) 24 % LYMPHOCYTES RELATIVE PERCENT (BEAKER) (test wmvp=536) 66 % MONOCYTES RELATIVE PERCENT (BEAKER) (test vgqp=291) 8 % EOSINOPHILS RELATIVE PERCENT (BEAKER) (test ogpc=837) 1 % BASOPHILS RELATIVE PERCENT (BEAKER) (test kbia=763) 1 % NEUTROPHILS ABSOLUTE COUNT (BEAKER) (test wbug=071) 2.43 K/ L 1.80-8.00 LYMPHOCYTES ABSOLUTE COUNT (BEAKER) (test cqne=815) 6.78 K/ L 1.48-4.50 MONOCYTES ABSOLUTE COUNT (BEAKER) (test psoz=879) 0.85 K/ L 0.00-1.30 EOSINOPHILS ABSOLUTE COUNT (BEAKER) (test bvso=245) 0.13 K/ L 0.00-0.50 BASOPHILS ABSOLUTE COUNT (BEAKER) (test uebw=916) 0.07 K/ L 0.00-0.20 0.000.900.800.000.000.000.000.00(MANUAL DIFFERENTIAL)2016-12-03 08:07:00* Test Item Value Reference Range Comments TOTAL COUNTED (BEAKER) (test rmzv=7448) PLT MORPHOLOGY (BEAKER) (test velc=311) Normal RBC MORPHOLOGY (BEAKER) (test gtfo=886) Normal ATYPICAL LYMPHS(BEAKER) (test wwct=9573) Present [id number] 05:38:00* Test Item Value Reference Range Comments MAGNESIUM (BEAKER) (test mxkz=548) 1.6 mg/dL 1.6-2.6 BASIC METABOLIC [id number] 05:38:00* Test Item Value Reference Range Comments SODIUM (BEAKER) (test zadq=965) 142 meq/L 136-145 POTASSIUM (BEAKER) (test uizj=203) 4.1 meq/L 3.5-5.1 CHLORIDE (BEAKER) (test nrjb=654) 105 meq/L 98-107 CO2 (BEAKER) (test yrpx=388) 29 meq/L 22-29 BLOOD UREA NITROGEN (BEAKER) (test qsnw=711) 18 mg/dL 7-21 CREATININE (BEAKER) (test smdb=700) 0.94 mg/dL 0.57-1.25 GLUCOSE RANDOM (BEAKER) (test bwsg=457) 84 mg/dL 70-105 CALCIUM (BEAKER) (test diuf=078) 8.2 mg/dL 8.4-10.2 EGFR (BEAKER) (test naav=2376) 58 mL/min/1.73 sq m ESTIMATED GFR IS NOT ACCURATE CREATININE CLEARANCE IN PREDICTING GLOMERULAR FILTRATION RATE. ESTIMATED GFR IS NOT APPLICABLE FOR DIALYSIS PATIENTS. PROTHROMBIN TIME/[id number] 05:29:00* Test Item Value Reference Range Comments PROTIME (BEAKER) (test imgi=241) 26.4 seconds 11.7-14.7 INR (BEAKER) (test ynsc=190) 2.4 <=5.9 RECOMMENDED COUMADIN/WARFARIN INR THERAPY RANGESSTANDARD DOSE: 2.0 - 3.0 Inclu todd: PROPHYLAXIS for venous thrombosis, systemic embolization; TREATMENT for julienne ous thrombosis and/or pulmonary embolus.HIGH RISK: Target INR is 2.5-3.5 for pat ients with mechanical heart valves.TSH/FREE T4 IF [id number] 09:27:00* Test Item Value Reference Range Comments THYROID STIMULATING HORMONE (BEAKER) (test dcpe=889) 4.32 uIU/mL 0.35-4.94 BASIC METABOLIC [id number] 06:04:00* Test Item Value Reference Range Comments SODIUM (BEAKER) (test sfdq=995) 137 meq/L 136-145 POTASSIUM (BEAKER) (test xptn=058) 3.0 meq/L 3.5-5.1 CHLORIDE (BEAKER) (test osrg=434) 97 meq/L 98-107 CO2 (BEAKER) (test lrbg=573) 29 meq/L 22-29 BLOOD UREA NITROGEN (BEAKER) (test buul=231) 27 mg/dL 7-21 CREATININE (BEAKER) (test curt=707) 1.14 mg/dL 0.57-1.25 GLUCOSE RANDOM (BEAKER) (test ojok=522) 85 mg/dL 70-105 CALCIUM (BEAKER) (test nksw=063) 8.0 mg/dL 8.4-10.2 EGFR (BEAKER) (test qozi=1463) 46 mL/min/1.73 sq m ESTIMATED GFR IS NOT ACCURATE CREATININE CLEARANCE IN PREDICTING GLOMERULAR FILTRATION RATE. ESTIMATED GFR IS NOT APPLICABLE FOR DIALYSIS PATIENTS. Specimen slightly [id number] 19:35:00* Test Item Value Reference Range Comments HAPTOGLOBIN (BEAKER) (test xbyp=841) 82 mg/dL 14-258 Effective 05/05/2014: Reference Range ChangeNew: 14-258 Previous: 36-195 TROPONIN [id number] 19:04:00* Test Item Value Reference Range Comments TROPONIN I (BEAKER) (test sooh=492) 0.08 ng/mL 0.00-0.03 Effective 05/05/2014: Reference Range ChangeNew: 0.00-0.03 Previous 0.00-0.15T roponin I (TnI) levels must be interpreted in the context of the presenting symp toms and the clinical findings. Elevated TnI levels indicate myocardial damage, but are not specific for ischemic heart disease. Elevated TnI levels are seen in patients with other cardiac conditions (including myocarditis and congestive he art failure), and slight TnI elevations occur in patients with other conditions, including sepsis, renal failure, acidosis, acute neurological disease, and pers istent tachyarrhythmia.RETICULOCYTE [id number] 18:22:00* Test Item Value Reference Range Comments RETICULOCYTE COUNT PCT (BEAKER) (test yaco=046) 1.9 % 0.4-2.9 LACTATE DEHYDROGENASE (LDH)2016-12-01 17:48:00* Test Item Value Reference Range Comments LACTATE DEHYDROGENASE (BEAKER) (test flqd=747) 327 U/L 125-220 CBC W/PLT COUNT & AUTO [id number] 12:41:00* Test Item Value Reference Range Comments WHITE BLOOD CELL COUNT (BEAKER) (test enoe=432) 10.6 K/ L 4.0-10.0 RED BLOOD CELL COUNT (BEAKER) (test efnt=825) 3.86 M/ L 4.00-5.00 HEMOGLOBIN (BEAKER) (test gdtm=225) 12.9 GM/DL 12.0-15.0 HEMATOCRIT (BEAKER) (test ncej=446) 39.5 % 36.0-45.0 MEAN CORPUSCULAR VOLUME (BEAKER) (test gorc=091) 102.0 fL 82.0-99.0 MEAN CORPUSCULAR HEMOGLOBIN (BEAKER) (test srlv=740) 33.4 pg 27.0-33.0 MEAN CORPUSCULAR HEMOGLOBIN CONC (BEAKER) (test blvh=284) 32.6 GM/DL 32.0-36.0 RED CELL DISTRIBUTION WIDTH (BEAKER) (test jjda=888) 17.2 % 10.3-14.2 PLATELET COUNT (BEAKER) (test bcyt=618) 40 K/CU MM 150-430 MEAN PLATELET VOLUME (BEAKER) (test lsol=851) 10.8 fL 6.5-10.5 NUCLEATED RED BLOOD CELLS (BEAKER) (test hosq=325) 0 /100 WBC 0-0 NEUTROPHILS RELATIVE PERCENT (BEAKER) (test lyso=597) 32 % LYMPHOCYTES RELATIVE PERCENT (BEAKER) (test hrav=188) 62 % MONOCYTES RELATIVE PERCENT (BEAKER) (test jpiy=100) 5 % EOSINOPHILS RELATIVE PERCENT (BEAKER) (test fkye=139) 1 % BASOPHILS RELATIVE PERCENT (BEAKER) (test vuut=315) 0 % NEUTROPHILS ABSOLUTE COUNT (BEAKER) (test fkrp=042) 3.33 K/ L 1.80-8.00 LYMPHOCYTES ABSOLUTE COUNT (BEAKER) (test bboa=155) 6.56 K/ L 1.48-4.50 MONOCYTES ABSOLUTE COUNT (BEAKER) (test hlyc=903) 0.55 K/ L 0.00-1.30 EOSINOPHILS ABSOLUTE COUNT (BEAKER) (test ymtz=589) 0.07 K/ L 0.00-0.50 BASOPHILS ABSOLUTE COUNT (BEAKER) (test qskc=206) 0.05 K/ L 0.00-0.20 0.000.900.700.000.000.000.000.00(MANUAL DIFFERENTIAL)2016-12-01 12:41:00* Test Item Value Reference Range Comments TOTAL COUNTED (BEAKER) (test hzxl=2705) PLT MORPHOLOGY (BEAKER) (test vqdm=852) Normal RBC MORPHOLOGY (BEAKER) (test kmrz=095) Normal ATYPICAL LYMPHS(BEAKER) (test obsp=6424) Present TROPONIN [id number] 12:28:00* Test Item Value Reference Range Comments TROPONIN I (BEAKER) (test qyyt=898) 0.09 ng/mL 0.00-0.03 Effective 05/05/2014: Reference Range ChangeNew: 0.00-0.03 Previous 0.00-0.15T roponin I (TnI) levels must be interpreted in the context of the presenting symp toms and the clinical findings. Elevated TnI levels indicate myocardial damage, but are not specific for ischemic heart disease. Elevated TnI levels are seen in patients with other cardiac conditions (including myocarditis and congestive he art failure), and slight TnI elevations occur in patients with other conditions, including sepsis, renal failure, acidosis, acute neurological disease, and pers istent tachyarrhythmia.URINALYSIS W/ [id number] 04:50:00* Test Item Value Reference Range Comments COLOR (BEAKER) (test bkze=124) Yellow CLARITY (BEAKER) (test mobf=486) Hazy SPECIFIC GRAVITY UA (BEAKER) (test syud=105) 1.013 1.001-1.035 PH UA (BEAKER) (test bztn=019) 5.0 5.0-8.0 PROTEIN UA (BEAKER) (test ubgr=755) 20 mg/dL Negative GLUCOSE UA (BEAKER) (test pdld=846) Negative Negative KETONES UA (BEAKER) (test joho=789) Negative Negative BILIRUBIN UA (BEAKER) (test pcru=315) Negative Negative BLOOD UA (BEAKER) (test emea=086) Negative Negative NITRITE UA (BEAKER) (test hezw=151) Negative Negative LEUKOCYTE ESTERASE UA (BEAKER) (test rerk=379) Negative Negative UROBILINOGEN UA (BEAKER) (test miwi=843) 2.0 mg/dL 0.2-1.0 RBC UA (BEAKER) (test tnou=006) 2 /HPF WBC UA (BEAKER) (test ynaj=167) 3 /HPF MUCUS (BEAKER) (test runx=4395) Rare HYALINE CASTS (BEAKER) (test bvjb=057) 49 /LPF GRANULAR CASTS (BEAKER) (test xozy=236) 2 /LPF AMORPHOUS CRYSTALS (BEAKER) (test hyuq=2852) Many SOURCE(BEAKER) (test wuvi=8171) Urine, Straight Catheter PT/[id number] 04:31:00* Test Item Value Reference Range Comments PROTIME (BEAKER) (test ofgy=068) 28.3 seconds 11.7-14.7 INR (BEAKER) (test ptrh=871) 2.6 <=5.9 PARTIAL THROMBOPLASTIN TIME (BEAKER) (test vyyz=620) 40.4 seconds 22.5-36.0 RECOMMENDED COUMADIN/WARFARIN INR THERAPY RANGESSTANDARD DOSE: 2.0 - 3.0 Inclu todd: PROPHYLAXIS for venous thrombosis, systemic embolization; TREATMENT for julienne ous thrombosis and/or pulmonary embolus.HIGH RISK: Target INR is 2.5-3.5 for pat ients with mechanical heart valves.[id number] 04:26:00* Test Item Value Reference Range Comments AMYLASE (BEAKER) (test ihka=928) 13 U/L 25-125 Specimen moderately ictericHEPATIC FUNCTION [id number] 04:26:00* Test Item Value Reference Range Comments TOTAL PROTEIN (BEAKER) (test wvty=743) 5.6 gm/dL 6.0-8.3 ALBUMIN (BEAKER) (test yjsz=0824) 3.4 g/dL 3.5-5.0 BILIRUBIN TOTAL (BEAKER) (test fopw=495) 5.0 mg/dL 0.2-1.2 BILIRUBIN DIRECT (BEAKER) (test fydx=870) 1.8 mg/dL 0.1-0.5 ALKALINE PHOSPHATASE (BEAKER) (test xvpn=712) 61 U/L 40-150 AST (SGOT) (BEAKER) (test cazl=305) 33 U/L 5-34 ALT (SGPT) (BEAKER) (test hxyo=410) 30 U/L 6-55 Specimen moderately [id number] 04:26:00* Test Item Value Reference Range Comments LIPASE (BEAKER) (test cgsx=428) 8 U/L 8-78 Specimen moderately [id number] 04:17:00* Test Item Value Reference Range Comments AMMONIA (BEAKER) (test tdnh=656) 33 mol/L 18-72 CBC W/PLT COUNT & AUTO [id number] 04:17:00* Test Item Value Reference Range Comments WHITE BLOOD CELL COUNT (BEAKER) (test tdze=921) 12.4 K/ L 4.0-10.0 RED BLOOD CELL COUNT (BEAKER) (test dgwp=846) 4.05 M/ L 4.00-5.00 HEMOGLOBIN (BEAKER) (test vtut=182) 13.2 GM/DL 12.0-15.0 HEMATOCRIT (BEAKER) (test jlmv=271) 41.4 % 36.0-45.0 MEAN CORPUSCULAR VOLUME (BEAKER) (test aqdg=379) 102.0 fL 82.0-99.0 MEAN CORPUSCULAR HEMOGLOBIN (BEAKER) (test eyoa=024) 32.6 pg 27.0-33.0 MEAN CORPUSCULAR HEMOGLOBIN CONC (BEAKER) (test sthv=796) 31.8 GM/DL 32.0-36.0 RED CELL DISTRIBUTION WIDTH (BEAKER) (test ighx=240) 17.2 % 10.3-14.2 PLATELET COUNT (BEAKER) (test xupa=353) 47 K/CU MM 150-430 MEAN PLATELET VOLUME (BEAKER) (test gwcy=408) 11.3 fL 6.5-10.5 NUCLEATED RED BLOOD CELLS (BEAKER) (test pjvd=062) 0 /100 WBC 0-0 NEUTROPHILS RELATIVE PERCENT (BEAKER) (test phpl=064) 31 % LYMPHOCYTES RELATIVE PERCENT (BEAKER) (test wigs=886) 60 % MONOCYTES RELATIVE PERCENT (BEAKER) (test jplj=511) 7 % EOSINOPHILS RELATIVE PERCENT (BEAKER) (test dkxq=185) 1 % BASOPHILS RELATIVE PERCENT (BEAKER) (test dznt=620) 1 % NEUTROPHILS ABSOLUTE COUNT (BEAKER) (test crdg=072) 3.86 K/ L 1.80-8.00 LYMPHOCYTES ABSOLUTE COUNT (BEAKER) (test gwdn=499) 7.47 K/ L 1.48-4.50 MONOCYTES ABSOLUTE COUNT (BEAKER) (test kcqh=837) 0.89 K/ L 0.00-1.30 EOSINOPHILS ABSOLUTE COUNT (BEAKER) (test kobs=995) 0.08 K/ L 0.00-0.50 BASOPHILS ABSOLUTE COUNT (BEAKER) (test tfvv=327) 0.13 K/ L 0.00-0.20 0.000.900.700.000.000.000.000.00CREATINE KINASE (CK), TOTAL AND [id number] 23:34:00* Test Item Value Reference Range Comments CREATINE KINASE TOTAL (BEAKER) (test qvzc=656) 165 U/L 29-200 CREATINE KINASE-MB (BEAKER) (test zude=394) 2.4 ng/mL 0.0-6.6 CREATINE KINASE-MB INDEX (BEAKER) (test vbop=556) 1.5 % Effective 05/05/2014: CK-MB Reference Range ChangeNew: 0.0-6.6 Previous: 0.0- 4.9CK-MB Reference Range:<6.7 Normal6.7-10.0 Borderline>10.0 AbnormalOrder for age greater than 18 with no history of head injury or liver disease patients of any ageOrder for age greater than 18 with no history of head injury or liver disease patients of any ageTROPONIN [id number] 23:34:00* Test Item Value Reference Range Comments TROPONIN I (BEAKER) (test qfqp=338) 0.08 ng/mL 0.00-0.03 Effective 05/05/2014: Reference Range ChangeNew: 0.00-0.03 Previous 0.00-0.15T roponin I (TnI) levels must be interpreted in the context of the presenting symp toms and the clinical findings. Elevated TnI levels indicate myocardial damage, but are not specific for ischemic heart disease. Elevated TnI levels are seen in patients with other cardiac conditions (including myocarditis and congestive he art failure), and slight TnI elevations occur in patients with other conditions, including sepsis, renal failure, acidosis, acute neurological disease, and pers istent tachyarrhythmia.Order for age greater than 18 with no history of head inj ury or liver disease patients of any ageBASIC METABOLIC [id number] 23:28:00 * Test Item Value Reference Range Comments SODIUM (BEAKER) (test vlvu=936) 137 meq/L 136-145 POTASSIUM (BEAKER) (test owgv=330) 3.2 meq/L 3.5-5.1 CHLORIDE (BEAKER) (test vach=422) 91 meq/L 98-107 CO2 (BEAKER) (test kxjy=789) 31 meq/L 22-29 BLOOD UREA NITROGEN (BEAKER) (test yiqc=534) 34 mg/dL 7-21 CREATININE (BEAKER) (test zqvi=390) 1.64 mg/dL 0.57-1.25 GLUCOSE RANDOM (BEAKER) (test aevy=389) 104 mg/dL 70-105 CALCIUM (BEAKER) (test vzjg=312) 9.1 mg/dL 8.4-10.2 EGFR (BEAKER) (test fgqe=6729) 30 mL/min/1.73 sq m ESTIMATED GFR IS NOT ACCURATE CREATININE CLEARANCE IN PREDICTING GLOMERULAR FILTRATION RATE. ESTIMATED GFR IS NOT APPLICABLE FOR DIALYSIS PATIENTS. Order for age greater than 18 with no history of head injury or liver disease pa tients of any ageSpecimen [facility] ictericBASIC METABOLIC [id number] 09:09:00* Test Item Value Reference Range Comments SODIUM (BEAKER) (test svzn=419) 136 meq/L 136-145 POTASSIUM (BEAKER) (test ssui=531) 3.6 meq/L 3.5-5.1 CHLORIDE (BEAKER) (test ngzf=348) 95 meq/L 98-107 CO2 (BEAKER) (test rpbg=422) 31 meq/L 22-29 BLOOD UREA NITROGEN (BEAKER) (test ytaf=779) 25 mg/dL 7-21 CREATININE (BEAKER) (test gwel=389) 1.55 mg/dL 0.57-1.25 GLUCOSE RANDOM (BEAKER) (test kpic=438) 100 mg/dL 70-105 CALCIUM (BEAKER) (test oycv=842) 9.7 mg/dL 8.4-10.2 EGFR (BEAKER) (test ntlh=0935) 32 mL/min/1.73 sq m ESTIMATED GFR IS NOT ACCURATE CREATININE CLEARANCE IN PREDICTING GLOMERULAR FILTRATION RATE. ESTIMATED GFR IS NOT APPLICABLE FOR DIALYSIS PATIENTS. Specimen slightly ictericPROTHROMBIN TIME/[id number] 04:46:00* Test Item Value Reference Range Comments PROTIME (BEAKER) (test svoe=900) 24.9 seconds 11.7-14.7 INR (BEAKER) (test oowl=366) 2.3 <=5.9 RECOMMENDED COUMADIN/WARFARIN INR THERAPY RANGESSTANDARD DOSE: 2.0 - 3.0 Inclu todd: PROPHYLAXIS for venous thrombosis, systemic embolization; TREATMENT for julienne ous thrombosis and/or pulmonary embolus.HIGH RISK: Target INR is 2.5-3.5 for pat ients with mechanical heart valves.[id number] 04:17:00* Test Item Value Reference Range Comments MAGNESIUM (BEAKER) (test zgma=235) 2.1 mg/dL 1.6-2.6 BASIC METABOLIC [id number] 04:17:00* Test Item Value Reference Range Comments SODIUM (BEAKER) (test ukwx=215) 138 meq/L 136-145 POTASSIUM (BEAKER) (test kike=894) 3.6 meq/L 3.5-5.1 CHLORIDE (BEAKER) (test bdny=671) 98 meq/L 98-107 CO2 (BEAKER) (test uupi=803) 29 meq/L 22-29 BLOOD UREA NITROGEN (BEAKER) (test royn=642) 24 mg/dL 7-21 CREATININE (BEAKER) (test pabw=758) 1.63 mg/dL 0.57-1.25 GLUCOSE RANDOM (BEAKER) (test kgfl=579) 98 mg/dL 70-105 CALCIUM (BEAKER) (test jcbj=916) 9.4 mg/dL 8.4-10.2 EGFR (BEAKER) (test xzdu=9040) 31 mL/min/1.73 sq m ESTIMATED GFR IS NOT ACCURATE CREATININE CLEARANCE IN PREDICTING GLOMERULAR FILTRATION RATE. ESTIMATED GFR IS NOT APPLICABLE FOR DIALYSIS PATIENTS. Specimen slightly ictericPROTHROMBIN TIME/[id number] 04:07:00* Test Item Value Reference Range Comments PROTIME (BEAKER) (test nxyg=428) 26.7 seconds 11.7-14.7 INR (BEAKER) (test ykep=215) 2.5 <=5.9 RECOMMENDED COUMADIN/WARFARIN INR THERAPY RANGESSTANDARD DOSE: 2.0 - 3.0 Inclu todd: PROPHYLAXIS for venous thrombosis, systemic embolization; TREATMENT for julienne ous thrombosis and/or pulmonary embolus.HIGH RISK: Target INR is 2.5-3.5 for pat ients with mechanical heart valves.URINALYSIS W/ [id number] 15:55:00 * Test Item Value Reference Range Comments COLOR (BEAKER) (test ailr=547) Colorless CLARITY (BEAKER) (test zxbf=396) Clear SPECIFIC GRAVITY UA (BEAKER) (test javf=768) 1.004 1.001-1.035 PH UA (BEAKER) (test hyvh=615) 6.5 5.0-8.0 PROTEIN UA (BEAKER) (test liog=407) Negative Negative GLUCOSE UA (BEAKER) (test fjyh=180) Negative Negative KETONES UA (BEAKER) (test ftxt=799) Negative Negative BILIRUBIN UA (BEAKER) (test rjwx=864) Negative Negative BLOOD UA (BEAKER) (test ozdi=159) Negative Negative NITRITE UA (BEAKER) (test qoup=575) Negative Negative LEUKOCYTE ESTERASE UA (BEAKER) (test zkrc=154) Negative Negative UROBILINOGEN UA (BEAKER) (test cbsn=844) 0.2 mg/dL 0.2-1.0 RBC UA (BEAKER) (test wisv=098) 0 /HPF WBC UA (BEAKER) (test bnmr=202) < /HPF MUCUS (BEAKER) (test fxea=5710) Rare SOURCE(BEAKER) (test lvns=2872) Urine, Voided CBC W/PLT COUNT & AUTO [id number] 13:33:00* Test Item Value Reference Range Comments WHITE BLOOD CELL COUNT (BEAKER) (test zwnv=196) 10.9 K/ L 4.0-10.0 RED BLOOD CELL COUNT (BEAKER) (test tlya=986) 4.00 M/ L 4.00-5.00 HEMOGLOBIN (BEAKER) (test cycs=978) 13.5 GM/DL 12.0-15.0 HEMATOCRIT (BEAKER) (test lfnx=697) 40.0 % 36.0-45.0 MEAN CORPUSCULAR VOLUME (BEAKER) (test bgam=292) 100.0 fL 82.0-99.0 MEAN CORPUSCULAR HEMOGLOBIN (BEAKER) (test ujow=298) 33.7 pg 27.0-33.0 MEAN CORPUSCULAR HEMOGLOBIN CONC (BEAKER) (test wqza=936) 33.7 GM/DL 32.0-36.0 RED CELL DISTRIBUTION WIDTH (BEAKER) (test acqd=258) 14.6 % 10.3-14.2 PLATELET COUNT (BEAKER) (test dlco=670) 131 K/CU MM 150-430 MEAN PLATELET VOLUME (BEAKER) (test lyxc=723) 8.5 fL 6.5-10.5 NUCLEATED RED BLOOD CELLS (BEAKER) (test eovt=795) 0 /100 WBC 0-0 NEUTROPHILS RELATIVE PERCENT (BEAKER) (test jwta=575) 43 % LYMPHOCYTES RELATIVE PERCENT (BEAKER) (test smzx=764) 53 % MONOCYTES RELATIVE PERCENT (BEAKER) (test vqix=807) 3 % EOSINOPHILS RELATIVE PERCENT (BEAKER) (test mznp=384) 1 % BASOPHILS RELATIVE PERCENT (BEAKER) (test wbvg=098) 1 % NEUTROPHILS ABSOLUTE COUNT (BEAKER) (test lppl=334) 4.63 K/ L 1.80-8.00 LYMPHOCYTES ABSOLUTE COUNT (BEAKER) (test npkj=759) 5.71 K/ L 1.48-4.50 MONOCYTES ABSOLUTE COUNT (BEAKER) (test wbkj=082) 0.30 K/ L 0.00-1.30 EOSINOPHILS ABSOLUTE COUNT (BEAKER) (test ewnr=225) 0.12 K/ L 0.00-0.50 BASOPHILS ABSOLUTE COUNT (BEAKER) (test vbcu=687) 0.11 K/ L 0.00-0.20 0.00(MANUAL DIFFERENTIAL)2016-08-09 13:33:00* Test Item Value Reference Range Comments TOTAL COUNTED (BEAKER) (test qwor=3197) PLT MORPHOLOGY (BEAKER) (test dlnt=071) Normal RBC MORPHOLOGY (BEAKER) (test odxq=152) Normal ATYPICAL LYMPHS(BEAKER) (test wcga=2347) Present CREATINE KINASE (CK), TOTAL AND [id number] 13:05:00* Test Item Value Reference Range Comments CREATINE KINASE TOTAL (BEAKER) (test nszi=588) 38 U/L 29-200 CREATINE KINASE-MB (BEAKER) (test ssbv=468) 1.2 ng/mL 0.0-6.6 CREATINE KINASE-MB INDEX (BEAKER) (test asjy=713) 3.2 % Effective 05/05/2014: CK-MB Reference Range ChangeNew: 0.0-6.6 Previous: 0.0- 4.9CK-MB Reference Range:<6.7 Normal6.7-10.0 Borderline>10.0 Abnormal TROPONIN [id number] 13:05:00* Test Item Value Reference Range Comments TROPONIN I (BEAKER) (test fxnu=389) 0.01 ng/mL 0.00-0.03 Effective 05/05/2014: Reference Range ChangeNew: 0.00-0.03 Previous 0.00-0.15T roponin I (TnI) levels must be interpreted in the context of the presenting symp toms and the clinical findings. Elevated TnI levels indicate myocardial damage, but are not specific for ischemic heart disease. Elevated TnI levels are seen in patients with other cardiac conditions (including myocarditis and congestive he art failure), and slight TnI elevations occur in patients with other conditions, including sepsis, renal failure, acidosis, acute neurological disease, and pers istent tachyarrhythmia.B-TYPE NATRIURETIC FACTOR (BNP)2016-08-09 13:03:00* Test Item Value Reference Range Comments B-TYPE NATRIURETIC PEPTIDE (BEAKER) (test eiyt=407) 404 pg/mL 0-100 [id number] 12:57:00* Test Item Value Reference Range Comments MAGNESIUM (BEAKER) (test vxjr=020) 2.2 mg/dL 1.6-2.6 BASIC METABOLIC [id number] 12:57:00* Test Item Value Reference Range Comments SODIUM (BEAKER) (test dfgu=149) 138 meq/L 136-145 POTASSIUM (BEAKER) (test sorg=249) 4.1 meq/L 3.5-5.1 CHLORIDE (BEAKER) (test rxhn=120) 102 meq/L 98-107 CO2 (BEAKER) (test oqcf=741) 25 meq/L 22-29 BLOOD UREA NITROGEN (BEAKER) (test mscs=882) 22 mg/dL 7-21 CREATININE (BEAKER) (test jome=209) 1.42 mg/dL 0.57-1.25 GLUCOSE RANDOM (BEAKER) (test mqit=638) 117 mg/dL 70-105 CALCIUM (BEAKER) (test gkqp=276) 9.3 mg/dL 8.4-10.2 EGFR (BEAKER) (test eonk=2172) 36 mL/min/1.73 sq m ESTIMATED GFR IS NOT ACCURATE CREATININE CLEARANCE IN PREDICTING GLOMERULAR FILTRATION RATE. ESTIMATED GFR IS NOT APPLICABLE FOR DIALYSIS PATIENTS. PT/[id number] 12:56:00* Test Item Value Reference Range Comments PROTIME (BEAKER) (test klxu=181) 27.2 seconds 11.7-14.7 INR (BEAKER) (test byvb=492) 2.5 <=5.9 PARTIAL THROMBOPLASTIN TIME (BEAKER) (test ejzz=028) 36.7 seconds 22.5-36.0 RECOMMENDED COUMADIN/WARFARIN INR THERAPY RANGESSTANDARD DOSE: 2.0 - 3.0 Inclu todd: PROPHYLAXIS for venous thrombosis, systemic embolization; TREATMENT for julienne ous thrombosis and/or pulmonary embolus.HIGH RISK: Target INR is 2.5-3.5 for pat ients with mechanical heart valves.
--- NOTE | 2018-05-24 11:13 | Diagnostic Imaging Report ---
CT [facility]IN [facility] HISTORY: Fall COMPARISON: None. Technique: Noncontrast axial scans were obtained from skull base to the vertex. Coronal and sagittal reconstructions obtained from the axial data. One or more of the following dose reduction techniques were used: Automated exposure control, adjustment of the mA and/or kV according to patient size, and/or utilization of iterative reconstruction technique. DISCUSSION: Scalp/Skull: Unremarkable. Brain sulci: Mildly prominent. Ventricles: Compensatory dilatation. Extra-axial spaces: No masses or fluid collections. Carotid siphon and vertebral artery calcifications are present. Parenchyma: Mild bilateral deep white matter hypodensity is likely chronic microvascular ischemic change. Otherwise, no masses, hemorrhage, or large vascular territory acute infarct. Dural sinuses: No abnormal densities. Sellar/Suprasellar region: Intact. Skull base: Intact. Incidental findings: Both ocular lenses are thinned. There is mild mucosal thickening in the right sphenoid sinus. IMPRESSION: 1. No acute intracranial abnormalities. 2. Mild supratentorial chronic microvascular ischemic change. Mild generalized cerebral volume loss. Signed by: Dr. Destin Bojorquez M.D. on 05/24/2018 11:10 AM
== END 2018-05-24 11:20 | disposition home or self-care (01) ==
LOC: FSED 10:08
DX: S06.0X0A Concussion without loss of consciousness, initial encounter (principal); S60.221A Contusion of right hand, initial encounter; S01.511A Laceration without foreign body of lip, initial encounter; G89.11 Acute pain due to trauma; W01.0XXA Fall on same level from slipping, tripping and stumbling without subsequent striking against object, initial encounter; Y92.009 Unspecified place in unspecified non-institutional (private) residence as the place of occurrence of the external cause; I48.91 Unspecified atrial fibrillation; Z79.01 Long term (current) use of anticoagulants; I12.9 Hypertensive chronic kidney disease with stage 1 through stage 4 chronic kidney disease, or unspecified chronic kidney disease; N18.9 Chronic kidney disease, unspecified; C91.10 Chronic lymphocytic leukemia of B-cell type not having achieved remission; K21.9 Gastro-esophageal reflux disease without esophagitis; I27.20 Pulmonary hypertension, unspecified; E78.5 Hyperlipidemia, unspecified; K58.9 Irritable bowel syndrome, unspecified; M79.7 Fibromyalgia; M47.896 Other spondylosis, lumbar region; I35.1 Nonrheumatic aortic (valve) insufficiency; Z95.0 Presence of cardiac pacemaker
CPT/HCPCS: 70450; 99283